=== PATIENT | female | born 1980 | race African-American/Black ===

== ENCOUNTER 2021-02-12 22:10 | Emergency (ER) | payer MEDICAID ==
[~2021-02-12] VITALS: Ht 165.1 cm; Wt 66.2 kg
[2021-02-12 22:20] VITALS: BP 122/71
--- NOTE | 2021-02-12 22:20 | NUR ---
TO BED AMBULATORY
--- NOTE | 2021-02-12 22:30 | NUR ---
PT. IS A 40 Y/O FEMALE THAT CAME INTO ED WITH C/O LEFT ARM PIT MASS. PT. STATES THE MASS HAS BEEN GROWING FOR OVER 3-4 MONTHS NOW. PT. DENIES ANY PAIN AT THIS TIME AND STATES "THE PAIN COMES AND GOES." PT. STATES THAT WHEN SHE DOES HAVE PAIN, "IT FEELS LIKE NUMBING PAIN RADIATING ON MY LEFT ARM." DENIES N/V/D/FEVER. SKIN IS PINK/WARM/DRY; AAOX4 WITH EVEN AND STEADY GAIT; HR EVEN AND REGULAR; PT DENIES ANY FEVER, CP, SOB, OR COUGH AT THIS TIME; VSS; PATIENT POSITIONED FOR COMFORT; HOB ELEVATED; BEDRAILS UP X1; BED DOWN. ER MADE AWARE OF PT STATUS. PMH: MS, CERVICAL CANCER, HEP. B POSITIVE ALLERGIES: ASPIRIN
--- NOTE | 2021-02-12 22:33 | NUR ---
ULTRASOUND AT BEDSIDE
--- NOTE | 2021-02-12 22:33 | NUR ---
[facility] in [facility] - 02/12/21 at 2240 by [facility] at bedside
--- NOTE | 2021-02-12 23:30 | NUR ---
PT. LAYING IN SUPINE POSITION, NO DISTRESS NOTED. AWAITING DISPOSITION
--- NOTE | 2021-02-13 00:40 | NUR ---
PT. LEFT WITHOUT DISCHARGE PAPERS
[2021-02-13 00:51] VITALS: BP 125/72
== END 2021-02-12 23:59 | disposition home or self-care (01) ==
LOC: MED 22:10
DX: L98.9 Disorder of the skin and subcutaneous tissue, unspecified (principal); Z79.82 Long term (current) use of aspirin; Z85.41 Personal history of malignant neoplasm of cervix uteri; Z86.19 Personal history of other infectious and parasitic diseases
CPT/HCPCS: 76881; 99284; Q0092